=== PATIENT | male | born 1960 | race Caucasian/White ===

== ENCOUNTER 2021-07-05 07:36 | Emergency (ER) | payer BC ==
[2021-07-05 07:45] VITALS: BP 125/81; PULSE 63; TEMP 97.9; BMI 25.1
== END 2021-07-05 08:36 | disposition home or self-care (01) ==
LOC: JERFT 07:36
DX: S43.401A Unspecified sprain of right shoulder joint, initial encounter (principal); W19.XXXA Unspecified fall, initial encounter; Y92.9 Unspecified place or not applicable
CPT/HCPCS: 73030-TC-RT-FY; 99284-25

== ENCOUNTER 2022-05-27 08:36 | Emergency (ER) | payer BC ==
[2022-05-27 08:56] VITALS: TEMP 97.9; BMI 25.1
[2022-05-27] MEDS ORDERED: MECLIZINE HCL 25 MG TABLET (FP) PO ONE (09:53)
[2022-05-27] MEDS ORDERED: LACTATED RINGERS SOLUTION 1000 ML INFUS.BAG IV ONE (09:53)
[2022-05-27] MEDS ORDERED: MECLIZINE HCL 25 MG TABLET (FP) ONE (10:04)
[2022-05-27 10:30] LABS: BASO % 0.5 % (0-2.0); EOS % 1.3 % (0-4.5); HEMATOCRIT 47.5 % (35.4-49); LYMPH % 16.1 % (8-40); MCH 31.5 pg (25.7-33.7); MCHC 33.7 g/dl (32.0-35.9); MEAN CELL VOLUME 93.2 fl (80-96); MEAN PLT VOLUME 7.7 fl (7.5-11.1); MONO % 5.5 % (3.8-10.2); NEUT % 76.6 % (42.8-82.8); PLATELET COUNT 247 10^3/uL (134-434); RDW 12.8 % (11.9-15.9); WHITE BLOOD COUNT 9.2 K/mm3 (4.0-10.0)
[2022-05-27 10:56] LABS: ALBUMIN 4.2 g/dl (3.4-5.0); BLOOD UREA NITROGEN 13.8 mg/dL (7-18); CALCIUM 9.3 mg/dL (8.5-10.1)
[2022-05-27 10:59] LABS: CREATININE 0.9 mg/dL (0.55-1.3)
[2022-05-27 11:01] LABS: BILIRUBIN,TOTAL 0.9 mg/dL (0.2-1); TOT PROT 7.3 g/dl (6.4-8.2)
[2022-05-27 12:12] VITALS: BP 135/85; PULSE 61; RESP 16
== END 2022-05-27 12:12 | disposition home or self-care (01) ==
LOC: JER 08:36
DX: R42 Dizziness and giddiness (principal)
CPT/HCPCS: 36415; 80053; 85025; 93005; 93010; 99284-25

== ENCOUNTER 2023-04-01 06:09 | Day surgery (SDC) | payer BC ==
[2023-03-24 11:43] VITALS: BMI 26.5
[2023-04-01] MEDS ORDERED: BUPIVICAINE 0.25%/MORPH PF/KETOROLAC - 51ML DISP.SYRINGE IA ONE ×4 (06:22→09:16)
[2023-04-01] MEDS ORDERED: CEFAZOLIN 2 GM in DEXTROSE 5%-WATER - 50 ML IVPB ONE (06:22)
[2023-04-01] MEDS ORDERED: ceFAZolin SODIUM 1 GM VIAL ONE (07:03)
[2023-04-01] MEDS ORDERED: THROMBIN (BOVINE) 5,000 UNIT VIAL TP ONE (07:04)
[2023-04-01] MEDS ORDERED: VANCOMYCIN 1,000 MG VIAL (RESTRICTED TO ID ONLY) ONE (07:04)
[2023-04-01] MEDS ORDERED: PROPOFOL 60 ML ONE (07:27)
[2023-04-01] MEDS ORDERED: SUCCINYLCHOLINE CHLORIDE 200 MG/10 ML SYRINGE ONE (07:27)
[2023-04-01] MEDS ORDERED: ROPIVACAINE HCL 0.5% 30ML VIAL ONE (07:30)
[2023-04-01] MEDS ORDERED: MIDAZOLAM HCL 2 MG/2 ML SINGLE DOSE VIAL ONE (07:30)
[2023-04-01] MEDS ORDERED: FENTANYL CITRATE/PF 50 MCG/ML VIAL ONE (07:30)
[2023-04-01] MEDS ORDERED: ONDANSETRON 4 MG/2 ML VIAL IVPUSH PRN ×2 (07:54→09:46)
[2023-04-01] MEDS ORDERED: CELECOXIB 200 MG CAPSULE PO ONE (08:00)
[2023-04-01] MEDS ORDERED: LACTATED RINGERS SOLUTION 1,000 ML IV SCH ×2 (08:00→10:00)
[2023-04-01] MEDS ORDERED: TRANEXAMIC ACID 1000 MG/10 ML VIAL IVPUSH ONE (09:00)
[2023-04-01] MEDS ORDERED: ePHEDrine SULFATE 50 MG/1 ML AMPULE ONE (09:27)
[2023-04-01] MEDS ORDERED: ONDANSETRON 4 MG/2 ML VIAL ONE (09:27)
[2023-04-01] MEDS ORDERED: DEXAMETHASONE SOD PHOSPHATE 4 MG/1 ML VIAL ONE (09:27)
[2023-04-01] MEDS ORDERED: oxyCODONE HCL 5 MG TABLET PO PRN (09:46)
[2023-04-01] MEDS ORDERED: ACETAMINOPHEN INJECTION 100 ML IVPB ONE (09:51)
[2023-04-01] MEDS: ACETAMINOPHEN 1000 MG/100 ML BAG IVPB ONE ×2 (09:55→21:22)
[2023-04-01] MEDS ORDERED: PATIENT'S OWN MEDICATION (NON-FORMULARY) (Pravastatin Sodium [Pravachol] 40 MG Tablet) PO SCH (10:00)
[2023-04-01] MEDS: SENNOSIDES/DOCUSATE COMBO (SENNA PLUS) TABLET (UD) PO SCH ×2 (15:31→21:18)
[2023-04-01] MEDS: MULTIVITAMINS (DAILY MVI) TABLET (FP) PO SCH (15:32)
[2023-04-01] MEDS: PANTOPRAZOLE 40 MG TABLET PO SCH (15:32)
[2023-04-01] MEDS ORDERED: DEXTROSE 5%-WATER 100 ML IVPB ONE (17:36)
[2023-04-01] MEDS: CEFAZOLIN SODIUM 2 GM in DEXTROSE 5%-WATER 100 ML IVPB SCH (17:43)
[2023-04-02] MEDS: CEFAZOLIN SODIUM 2 GM in DEXTROSE 5%-WATER 100 ML IVPB SCH (00:15)
[2023-04-02] MEDS: oxyCODONE HCL 5 MG TABLET PO PRN ×2 (06:01→12:53)
[2023-04-02] MEDS ORDERED: ASPIRIN 325 MG TABLET PO SCH (08:00)
[2023-04-02 09:08] VITALS: RESP 18
[2023-04-02] MEDS: MULTIVITAMINS (DAILY MVI) TABLET (FP) PO SCH (09:37)
[2023-04-02] MEDS: SENNOSIDES/DOCUSATE COMBO (SENNA PLUS) TABLET (UD) PO SCH (09:37)
[2023-04-02] MEDS: PANTOPRAZOLE 40 MG TABLET PO SCH (09:37)
[2023-04-02] MEDS ORDERED: amLODIPine BESYLATE 10 MG TABLET (FP) PO SCH (10:00)
[2023-04-02 13:06] VITALS: BP 105/58; PULSE 69; TEMP 98.6
[2023-04-02] MEDS ORDERED: ATORVASTATIN CA 10 MG TABLET (FP) PO SCH (22:00)
== END 2023-04-02 15:35 | disposition home health service (06) ==
LOC: FASUSAT 06:09 → FM/S 10:46 → FASUSAT 13:52
PROVIDERS: ATTEND Orthopaedic Surgery
PROC: 8E0Y0CZ Robotic Assisted Procedure of Lower Extremity, Open Approach (ICD-10-PCS; 2023-04-01)
PROC: 0SRD0L9 Replacement of Left Knee Joint with Medial Unicondylar Synthetic Substitute, Cemented, Open Approach (ICD-10-PCS; principal; 2023-04-01 08:00)
DX: M17.12 Unilateral primary osteoarthritis, left knee (principal)
CPT/HCPCS: 20985; 27446; C1776; S2900; 73560-TC-LT-FY; 94760; 97010-GP; 97116-GP; 97162-GP; C1889